=== PATIENT | male | born 1955 | race Two or more races ===

== ENCOUNTER 2018-05-26 06:50 | Day surgery (SDC) | payer OTHER | END 2018-05-26 14:45 | disposition home or self-care (01) | LOC: AMB-ENDOS 06:50 → LAB 09:31 → AMB-ENDOS 12:20 | DX: D12.5 Benign neoplasm of sigmoid colon (principal); D12.2 Benign neoplasm of ascending colon; Z86.010 Personal history of colon polyps ==

== ENCOUNTER 2019-07-06 05:50 | Day surgery (SDC) | payer OTHER | END 2019-07-06 13:25 | disposition home or self-care (01) | LOC: AMB-ENDOS 05:50 | DX: D12.2 Benign neoplasm of ascending colon (principal); K57.32 Diverticulitis of large intestine without perforation or abscess without bleeding; K64.1 Second degree hemorrhoids ==